=== PATIENT | male | born 1985 | race Caucasian/White ===

== ENCOUNTER 2021-03-17 14:09 | Emergency (ER) | payer BC ==
[2021-03-17 14:48] VITALS: BP 125/83; PULSE 93; RESP 20; TEMP 98.4
[2021-03-17] MEDS ORDERED: FLUCONAZOLE 150 MG TAB PO STA (15:17)
--- NOTE | 2021-03-17 15:24 | ED ---
General Adult HPI - General Chief complaint: Skin/Abscess/Foreign Body Stated complaint: Rash Time Seen by Provider: 03/17/21 15:03 Source: patient Mode of arrival: ambulatory Limitations: no limitations - History of Present Illness Initial comments: Dictation was produced using [employer] dictation software. please excuse any grammatical, word or spelling errors. Chief Complaint: 36-year-old male presents emergency department for left popliteal rash History of Present Illness: 36-year-old male he was working outside a 1 week ago. Shortly after he began having a rash in the left popliteal intertriginous area. Patient states his rash mildly painful and levine with touch. Patient does not have a history of rashes. He does not have any comorbidities. States that he went to his primary care doctor was initially provided triamcinolone cream and steroids. Apply the cream once or twice. States that his symptoms did not improve so a call his primary care doctor again and was given topical muporicin and clindamycin. Patient is here in emergency department because physical symptoms are not getting any better. He is only been on the antibiotics for the last 1-2 days. She will symptoms. Yesterday he noted he was developing rashes similar to the one in his leg in his bilateral armpits. Patient has no history of eczema or psoriasis. The ROS documented in this emergency department record has been reviewed and confirmed by me. Those systems with pertinent positive or negative responses have been documented in the HPI. All other systems are other negative and/or noncontributory. PHYSICAL EXAM: General Impression: Alert and oriented x3, not in acute distress HEENT: Normocephalic atraumatic, extra-ocular movements intact, pupils equal and reactive to light bilaterally, mucous membranes moist. Cardiovascular: Heart regular rate and rhythm Chest: Able to complete full sentences, no retractions, no tachypnea Abdomen: abdomen soft, non-tender, non-distended, no organomegaly Musculoskeletal: Pulses present and equal in all extremities, no peripheral edema Motor: no focal deficits noted Neurological: CN II-XII grossly intact, no focal motor or sensory deficits noted Skin: Erythematous raised rash to the left popliteal area with some no indurations, no bullae or there are similar areas that are much less mildly in the bilateral axilla Psych: Normal affect and mood ED course: 36-year-old male with clinical presentation concerning for Carmela dermatitis. Vital signs upon arrival are within acceptable limits. No signs of dermatologic emergency. Patient instructed to continue taking his topical triamcinolone and clindamycin. He is told to discontinue the steroids and be proceeding. Patient given 1 dose of Diflucan. Told to monitor symptoms and to follow-up with dermatology if his symptoms do not improve. - Related Data Previous Rx's Medication Instructions Recorded Amoxicillin/Potassium Clav 1 each PO Q12HR #20 tab 02/08/14 [Augmentin 875-125 Tablet] Allergies Allergy/AdvReac Type Severity Reaction Status Date / Time No Known Allergies Allergy Verified 03/17/21 14:45 Review of Systems ROS Statement: Those systems with pertinent positive or pertinent negative responses have been documented in the HPI. ROS Other: All systems not noted in ROS Statement are negative. Past Medical History Past Medical History: No Reported History History of Any Multi-Drug Resistant Organisms: None Reported Past Surgical History: No Surgical Hx Reported Past Psychological History: No Psychological Hx Reported Smoking Status: Never smoker Past Alcohol Use History: Occasional Past Drug Use History: None Reported General Exam Limitations: no limitations Course Vital Signs 03/17/21 14:46 Temperature 98.4 F Pulse Rate 93 Respiratory 20 Rate Blood Pressure 125/83 O2 Sat by Pulse 98 Oximetry Disposition Clinical Impression: Rash Disposition: HOME SELF-CARE Condition: Fair Instructions (If sedation given, give patient instructions): Skin Yeast Infection (ED), Dermatitis (ED) Is patient prescribed a controlled substance at d/c from ED?: No Referrals: Zahra Mustafa MD [STAFF PHYSICIAN] - 1-2 days
== END 2021-03-17 15:30 | disposition home or self-care (01) ==
LOC: EC 14:09
DX: R21 Rash and other nonspecific skin eruption (principal)
CPT/HCPCS: 99282